=== PATIENT | female | born 1970 | race African-American/Black ===

== ENCOUNTER 2019-02-11 09:13 | Emergency (ER) | payer BC ==
[~2019-02-11] VITALS: Ht 167.6 cm; Wt 50.0 kg
[~2019-02-11 09:13] MED LIST: CIPRO 500MG TA500 MG PO; FLOMAX 0.40.4 MG/CAP PO; NORCO 325 MG-51 TAB PO; ZOFRAN 4MG T4 MG/TAB PO
[2019-02-11 09:19] VITALS: BP 182/81; TEMP 98.2
[2019-02-11] MEDS ORDERED: ADVIL200 MG (10:06)
[2019-02-11] MEDS ORDERED: NAPROSYN500 MG PO (10:27)
[2019-02-11] MEDS ORDERED: FLEXERIL 1010 MG/TAB PO (10:27)
[2019-02-11 10:38] VITALS: PULSE 80
== END 2019-02-11 10:39 | disposition home or self-care (01) ==
LOC: COL.ER 09:13
DX: M62.830 Muscle spasm of back (principal); M54.5 Low back pain; Z90.710 Acquired absence of both cervix and uterus
CPT/HCPCS: J1885

== ENCOUNTER 2024-08-22 13:56 | Emergency (ER) | payer OTHER ==
[~2024-08-22] VITALS: Ht 167.6 cm; Wt 50.0 kg
[~2024-08-22 13:56] MED LIST changes: +ADVIL200 MG; +FLEXERIL 1010 MG/TAB PO; +NAPROSYN500 MG PO
[2024-08-22 14:11] VITALS: BP 111/74; PULSE 84; TEMP 98.3
[2024-08-22] MEDS ORDERED: dexAMETHasone 10 MG/ML VIAL IM ONE (14:45)
[2024-08-22] MEDS ORDERED: Ketorolac 15 MG/ML VIAL IM ONE (14:45)
== END 2024-08-22 16:15 | disposition left against medical advice (07) ==
LOC: COL.ER 13:56
DX: M54.10 Radiculopathy, site unspecified (principal); Z79.891 Long term (current) use of opiate analgesic; Z79.899 Other long term (current) drug therapy; Z88.8 Allergy status to other drugs, medicaments and biological substances
CPT/HCPCS: J1100; J1885